=== PATIENT | female | born 1955 | race Two or more races ===

== ENCOUNTER 2022-01-15 19:15 | Emergency (ER) | payer OTHER, BC ==
[~2022-01-15] VITALS: Ht 162.6 cm; Wt 90.7 kg
[2022-01-15] MEDS ORDERED: TOPROL XL25 M1 PO (19:52)
[2022-01-15] MEDS ORDERED: CRESTOR20 MG PO (19:53)
[2022-01-16] MEDS ORDERED: MOLNUPIRAVIR (200 MG PO (00:13)
[2022-01-16] MEDS ORDERED: ACETAMINOPHEN650 M2 PO (00:13)
[2022-01-16] MEDS ORDERED: MUCINEX DM ER1 EAC1 PO (00:13)
[2022-01-16] MEDS ORDERED: PROAIR HFA8.5 GM IH (00:13)
[2022-01-16] MEDS ORDERED: ZYRTEC10 MG PO (00:13)
[2022-01-16] MEDS ORDERED: VITAMIN C WIT1000 MG PO (00:13)
== END 2022-01-16 00:47 | disposition home or self-care (01) ==
LOC: ER 19:15
DX: U07.1 COVID-19 (principal)

== ENCOUNTER → 2022-01-16 | Emergency (ER) | payer OTHER, BC ==
[~2022-01-16] VITALS: Ht 162.6 cm; Wt 90.7 kg
[~2022-01-16] MED LIST: ACETAMINOPHEN650 M2 PO; CRESTOR20 MG PO; MOLNUPIRAVIR (200 MG PO; MUCINEX DM ER1 EAC1 PO; PROAIR HFA8.5 GM IH; TOPROL XL25 M1 PO; VITAMIN C WIT1000 MG PO; ZYRTEC10 MG PO
== END | disposition home or self-care (01) ==
LOC: ER 12:09
DX: U07.1 COVID-19 (principal)